=== PATIENT | female | born 1955 | race African-American/Black ===

== ENCOUNTER 2024-01-12 08:57 | Emergency (ER) | payer BC ==
[~2024-01-12] VITALS: Ht 165.1 cm; Wt 73.0 kg
[2024-01-12 09:01] VITALS: O2SAT 100
[2024-01-12] MEDS ORDERED: TOPUD PO (11:13)
[2024-01-12] MEDS: ACETAMINOPHEN 325MG TABLET PO ONE (11:29)
[2024-01-12 11:33] VITALS: BP 138/77; PULSE 82; RESP 16; TEMP 98.5
== END 2024-01-12 11:58 | disposition home or self-care (01) ==
LOC: ER 09:01
DX: M25.512 Pain in left shoulder (principal); R51.9 Headache, unspecified; V49.9XXA Car occupant (driver) (passenger) injured in unspecified traffic accident, initial encounter; Y93.89 Activity, other specified; Y92.89 Other specified places as the place of occurrence of the external cause; Y99.8 Other external cause status
CPT/HCPCS: 73030; 99284